=== PATIENT | female | born 1970 | race Caucasian/White ===

== ENCOUNTER → 2018-06-13 | Outpatient (CLI) | payer BC ==
[2018-06-14 15:07] LABS: HPV 16 Negative (Negative); HPV 18 Negative (Negative); HPV OTHER HR TYPES Positive (Negative)
== END | disposition home or self-care (01) ==
LOC: LAB SHORT 08:14 → LAB SRC 08:14
PROVIDERS: Nurse Practitioner Family
DX: Z01.419 Encounter for gynecological examination (general) (routine) without abnormal findings (principal)
CPT/HCPCS: 87624; 87625; G0123

== ENCOUNTER 2018-07-28 09:11 | Day surgery (SDC) | payer BC | END 2018-07-28 23:16 | disposition home or self-care (01) | LOC: CT 09:11 | DX: I88.9 Nonspecific lymphadenitis, unspecified (principal); R93.89 Abnormal findings on diagnostic imaging of other specified body structures; Z80.7 Family history of other malignant neoplasms of lymphoid, hematopoietic and related tissues | CPT/HCPCS: 38505; 76942; 88305; 88312 ==

== ENCOUNTER → 2018-08-23 | Outpatient (CLI) | payer BC ==
[~2018-08-23] MED LIST: ALBU90OI INH; Advil200 M1 PO; CLOTRIMAZOLE TOP; Flonase 0.05% N16 GM; IRON PO
== END ==
LOC: LAB SHORT 17:24 → LAB 17:24
DX: D48.5 Neoplasm of uncertain behavior of skin (principal); L53.8 Other specified erythematous conditions; L29.8 Other pruritus; R20.8 Other disturbances of skin sensation
CPT/HCPCS: 87015; 87071; 87075; 87102; 87116; 87205; 87206

== ENCOUNTER 2018-09-12 08:45 | Day surgery (SDC) | payer BC ==
[~2018-09-12] VITALS: Ht 170.2 cm; Wt 91.7 kg
--- NOTE | 2018-09-12 09:23 | NUR ---
Ambulatory in Day Surgery History, Chart, Medications and Allergies reviewed before start of procedure.Lungs clear T/O to Auscultation.DUO NEB GIVEN PER DR. JOHNSON ORDER. Patient confirms NPO status and agrees with scheduled surgery. Patient reports completing Chlorhexadine shower X2 prior to admission to hospital.Surgical site prepped with 2% Chlorhexidine cloth wipe.
--- NOTE | 2018-09-12 09:35 | NUR ---
AT BEDSIDE. AFTER REVIEW OF PT FILMS WITH RADIOLOGIST, PROCEDURE CANCELED.
--- NOTE | 2018-09-12 09:40 | NUR ---
PT DISCHARGED TO HOME PROCEDURE CANCELED. 'S OFFICE TO CALL PT TO SCHEDULE CONSULT WITH DR. BRIDGES.
== END 2018-09-12 10:00 | disposition home or self-care (01) ==
LOC: ORSCMMR 08:45 → ORD 10:00 → ORSCMMR 10:00
DX: R59.9 Enlarged lymph nodes, unspecified (principal); Z53.9 Procedure and treatment not carried out, unspecified reason
CPT/HCPCS: J2250; J2704; J3010; J7120

== ENCOUNTER 2021-06-25 11:43 | Emergency (ER) | payer BC ==
[~2021-06-25] VITALS: Ht 167.6 cm; Wt 102.5 kg
[2021-06-25 12:27] LABS: BASOPHILS ABSOLUTE AUTO 0.07 K/mm3 (0.00-0.23); BASOPHILS PERCENT AUTO 1 % (0-2); EOSINOPHILS ABSOLUTE AUTO 0.29 K/mm3 (0.00-0.68); EOSINOPHILS PERCENT AUTO 5 % (0-6); Hematocrit 43.6 % (33.0-51.0); Hemoglobin 13.7 g/dL (11.5-16.0); IMMATURE GRAN ABSOLUTE AUTO 0.04 K/mm3 (0.00-0.10); IMMATURE GRAN PERCENT AUTO 1 % (0-1); LYMPHOCYTES ABSOLUTE AUTO 1.21 K/mm3 (0.84-5.20); LYMPHOCYTES PERCENT AUTO 21 % (21-46); MONOCYTES ABSOLUTE AUTO 0.55 K/mm3 (0.16-1.47); MONOCYTES PERCENT AUTO 10 % (4-13); Mean Corpuscular HGB 25.2 pg (26.0-34.0); Mean Corpuscular HGB Conc 31.4 g/dL (31.5-36.5); Mean Corpuscular Volume 80 fL (80-100); Mean Platelet Volume 9.4 fL (9.1-12.4); NEUTROPHILS ABSOLUTE AUTO 3.61 K/mm3 (1.96-9.15); NEUTROPHILS PERCENT AUTO 63 % (41-73); Platelet Count 383 K/mm3 (150-400); RDW Coefficient Variation 13.9 % (11.7-14.2); RDW Standard Deviation 40.7 fL (35.1-46.3); Red Blood Cell Count 5.44 M/mm3 (3.80-5.20); White Blood Cell Count 5.77 K/mm3 (4.00-11.30)
[2021-06-25 12:40] LABS: Alanine Aminotransfer (ALT/SGP 32 U/L (12-78); Albumin, Blood 3.7 g/dL (3.4-5.0); Albumin/Globulin Ratio 0.9 (0.8-1.8); Alk Phos 99 U/L (50-136); Anion Gap 4 mmol/L (6-16); Aspartate Aminotrans (AST/SGOT 25 U/L (12-37); Bilirubin, Total 0.3 mg/dL (0.1-1.0); Blood Urea Nitrogen 16 mg/dL (8-24); CO2, Blood 27 mmol/L (21-32); Chloride, Blood 108 mmol/L (98-108); Creatinine, Blood 0.62 mg/dL (0.40-1.00); Globulin, Blood 4.1 g/dL (2.2-4.0); Glomerular Filtration Rate >60 (60-); Glucose, Blood 90 mg/dL (70-99); Potassium, Blood 4.1 mmol/L (3.5-5.5); Sodium, Blood 139 mmol/L (136-145); Total Protein, Blood 7.8 g/dL (6.4-8.2)
[2021-06-25] MEDS ORDERED: Voltaren100 GM TOP (15:48)
== END 2021-06-25 15:56 | disposition home or self-care (01) ==
LOC: ER 11:43
PROVIDERS: Physician Assistant
DX: R07.89 Other chest pain (principal); Z88.0 Allergy status to penicillin; Z79.899 Other long term (current) drug therapy; I10 Essential (primary) hypertension
CPT/HCPCS: 36415; 71045; 80053; 84484; 85025; 93005; 93010; 99285-25

== ENCOUNTER → 2021-08-04 | Outpatient (CLI) | payer BC ==
[~2021-08-04] MED LIST changes: +Voltaren100 GM TOP
[2021-08-04 18:00] LABS: Source, Urine Clean Catch
[2021-08-04 18:45] LABS: Appearance, Urine Hazy (Clear); Bilirubin, Urine Neg (Neg); Blood, Urine 1+ (Neg); Color, Urine Amber (P-Yellow); Glucose Qualitative, Urine Neg (Neg); Ketones, Urine Neg (Neg); Leukocyte Esterase, Urine 2+ (Neg); Nitrite, Urine Neg (Neg); Protein, Urine Neg (Neg); Urobilinogen, Urine NORM (Normal)
[2021-08-04 18:55] LABS: Bacteria Many /hpf; Squamous Epithelial Cells Many /hpf (Few)
== END | disposition home or self-care (01) ==
LOC: LAB SHORT 14:05
PROVIDERS: Physician Assistant
DX: N39.0 Urinary tract infection, site not specified (principal); R30.0 Dysuria
CPT/HCPCS: 81001; 87077; 87086; 87186

== ENCOUNTER → 2021-12-31 | Outpatient (CLI) | payer BC ==
[2022-01-05 09:09] LABS: HPV 16 Negative (Negative); HPV 18 Negative (Negative); HPV OTHER HR TYPES Positive (Negative)
== END ==
LOC: LAB SHORT 11:33
PROVIDERS: Nurse Practitioner Family
DX: Z11.51 Encounter for screening for human papillomavirus (HPV) (principal)
CPT/HCPCS: 87624; 87625; G0123

== ENCOUNTER → 2022-03-05 | Outpatient (CLI) | payer BC | LOC: LAB SHORT 13:10 → LAB 13:10 | DX: D26.0 Other benign neoplasm of cervix uteri (principal) | CPT/HCPCS: 88305 ==

== ENCOUNTER → 2022-04-02 | Outpatient (CLI) | payer BC ==
[2022-04-03 13:31] LABS: Candida species (DNA Probe) Negative (NEGATIVE); G. vaginalis (DNA Probe) Negative (NEGATIVE); T. vaginalis (DNA Probe) Negative (NEGATIVE)
== END | disposition home or self-care (01) ==
LOC: LAB SHORT 17:16
PROVIDERS: Obstetrics & Gynecology
DX: N76.0 Acute vaginitis (principal)
CPT/HCPCS: 87480; 87510; 87660

== ENCOUNTER 2022-07-10 01:51 | Inpatient (IN) | payer BC ==
[~2022-07-10] VITALS: Ht 167.6 cm; Wt 107.2 kg
[~2022-07-10 01:51] MED LIST changes: +FERROUS GLUCON324 M6 PO; -IRON PO
[2022-07-10 09:59] LABS: BASOPHILS ABSOLUTE AUTO 0.04 K/mm3 (0.00-0.23); BASOPHILS PERCENT AUTO 1 % (0-2); EOSINOPHILS ABSOLUTE AUTO 0.05 K/mm3 (0.00-0.68); EOSINOPHILS PERCENT AUTO 1 % (0-6); Hematocrit 40.8 % (33.0-51.0); Hemoglobin 12.9 g/dL (11.5-16.0); IMMATURE GRAN ABSOLUTE AUTO 0.04 K/mm3 (0.00-0.10); IMMATURE GRAN PERCENT AUTO 1 % (0-1); LYMPHOCYTES ABSOLUTE AUTO 1.88 K/mm3 (0.84-5.20); LYMPHOCYTES PERCENT AUTO 22 % (21-46); MONOCYTES ABSOLUTE AUTO 0.53 K/mm3 (0.16-1.47); MONOCYTES PERCENT AUTO 6 % (4-13); Mean Corpuscular HGB 25.1 pg (26.0-34.0); Mean Corpuscular HGB Conc 31.6 g/dL (31.5-36.5); Mean Corpuscular Volume 80 fL (80-100); Mean Platelet Volume 9.6 fL (9.1-12.4); NEUTROPHILS ABSOLUTE AUTO 5.85 K/mm3 (1.96-9.15); NEUTROPHILS PERCENT AUTO 70 % (41-73); Platelet Count 297 K/mm3 (150-400); RDW Coefficient Variation 14.1 % (11.7-14.2); RDW Standard Deviation 41.2 fL (35.1-46.3); Red Blood Cell Count 5.13 M/mm3 (3.80-5.20); White Blood Cell Count 8.39 K/mm3 (4.00-11.30)
[2022-07-10 10:19] LABS: Bun/Creatinine Ratio 29.2 (12.0-20.0); Calcium, Blood 8.6 mg/dL (8.5-10.1); Creatinine, Blood 0.65 mg/dL (0.40-1.00); Potassium, Blood 3.1 mmol/L (3.5-5.5)
[2022-07-10 10:43] LABS: Adenovirus Not Detected (NOT DETECT); Bordetella pertussis Not Detected (NOT DETECT); Chlamydophila pneumoniae Not Detected (NOT DETECT); Coronavirus 229E Not Detected (NOT DETECT); Coronavirus HKU1 Not Detected (NOT DETECT); Coronavirus NL63 Not Detected (NOT DETECT); Coronavirus OC43 Not Detected (NOT DETECT); Human Metapneumovirus Detected (NOT DETECT); Human Rhinovirus/Enterovirus Not Detected (NOT DETECT); Influenza A/2009-H1 Not Detected (NOT DETECT); Influenza A/H1 Not Detected (NOT DETECT); Influenza A/H3 Not Detected (NOT DETECT); Influenza B Not Detected (NOT DETECT); Mycoplasma pneumoniae Not Detected (NOT DETECT); Parainfluenza Virus 1 Not Detected (NOT DETECT); Parainfluenza Virus 2 Not Detected (NOT DETECT); Parainfluenza Virus 3 Not Detected (NOT DETECT); Parainfluenza Virus 4 Not Detected (NOT DETECT); Respiratory Syncytial Virus Not Detected (NOT DETECT); SARS-Cov-2 (COVID-19), BioFire Not Detected (NOT DETECT)
[2022-07-10 12:46] VITALS: BP 152/87
[2022-07-10 15:05] VITALS: BP 132/65
--- NOTE | 2022-07-10 15:59 | NUR ---
PATIENT ADMITED FROM ED TODAY FOR ASTHMA EXACERBATION. PATIENT CALM AND COOPERATIVE WITH STAFF AND ABLE TO MAKE NEEDS KNOWN. PATIENT IS INDEPENDANT OF ADLs. VSS, PATIENT ON RA WITH NO REPORTS OF DISTRESS. COURSE RESPIRATIONS NOTED WITH AUSCULTATION. SL IV LOCATED IN LEFT AC. NO REPORTS OF PAIN. STATED TOLERABLE PAIN GOAL OF <6/10 (10 MAX).
--- NOTE | 2022-07-10 16:25 | NUR ---
SHIFT SUMMARY THIS RN AGREES WITH STUDENT NURSE ASSESSMENT AND SHIFT SUMMARY
[2022-07-10 20:19] VITALS: BP 148/82
--- NOTE | 2022-07-11 05:05 | NUR ---
A&Ox4. PLEASANT AND COOPERATIVE WITH CARE. CALLS APPROPRIATELY AND IS ABLE TO COMMUNICATE NEEDS EFFECTIVELY. ORIENTED TO ABILITIES AND EXHIBITS GOOD JUDGMENT. RECEIVED ORDER FOR TEMAZEPAM AND FAMOTIDINE PER PATIENT REQUEST. CONTINUES WITH ATC NEBULIZER Tx. REPORTS FEELING LESS TIGHT. PRN GUAIFINESSIN x1 ADMINISTERED FOR COUGH. SHE DOES REQUEST A VEGAN DIET INCLUDING LACTOSE-FREE. REPORT TO ONCOMING RN.
[2022-07-11 05:47] VITALS: BP 148/83
[2022-07-11 07:12] VITALS: BP 156/88
--- NOTE | 2022-07-11 16:16 | NUR ---
SHIFT SUMMARY PATIENT IS ALERT AND ORIENTED. PATIENT HAS HAD NO ACUTE EVENTS THIS SHIFT. VITAL SIGNS REVIEWED. PATIENTS LUNGS STILL SOUND TIGHT AND COURSE. PATIENT STATES THAT SHE FEELS BETTER. PATIENT HAS NOT COMPLAINED OF PAIN, NAUSEA, SOB OR VOMITTING. BED IN LOCKED AND LOWEST POSITION. CALL LIGHT IN PLACE. WILL MONITOR UNTIL SHIFT CHANGE.
[2022-07-11 16:20] VITALS: BP 143/87
[2022-07-11 19:34] VITALS: BP 145/86
--- NOTE | 2022-07-12 04:14 | NUR ---
SHIFT SUMMARY; NO ACUTE CHANGES OVERNIGHT. THE PT IS AXO X4 AND INDEPENDENT IN THE ROOM. THE PT HAS BEEN RESTING IN BED FOR THE MAJORITY OF THE NIGHT. THE PT DENIES ANY SOB, CHEST PAIN/PRESSURE, PAIN OR N/V. CURRENTLY THE PT IS SLEEPING IN BED WITH THE BED IN THE LOWEST POSITION AND THE CALL LIGHT AT BEDSIDE.
[2022-07-12 04:35] VITALS: BP 146/78
[2022-07-12 07:30] VITALS: BP 147/92
[2022-07-12 15:41] VITALS: BP 156/82
--- NOTE | 2022-07-12 18:17 | NUR ---
SHIFT SUMMARY PATIENT IS ALERT AND ORIENTED. PATIENT HAS NOT HAD ANY ACUTE EVENTS THIS SHIFT. VITAL SIGNS REVIEWED. PATIENT IS HERE FOR GRUPO EXACERBATION. PATIENT HAS HAD REGULAR BREATHING TREATMENTS TODAY WITH LIMITED SUCCESS. POSSIBLE DISCHARGE TOMORROW. PATIENT HAS COMPLAINED OF PAIN- MEDICATED PER EMAR. PATIENT HAD NOT COMPLAINED OF NAUSEA OR VOMITTING THIS SHIFT. BED IN LOCKED AND LOWEST POSITION. CALL LIGHT IN PLACE. WILL MONITOR UNTIL SHIFT CHANGE.
[2022-07-12 19:44] VITALS: BP 136/72
[2022-07-13 03:27] VITALS: BP 152/77
--- NOTE | 2022-07-13 05:18 | NUR ---
Shift Summary Pt has new onset fever tonight ranging from 100-103. She has been on Tylenol for pain which is also controling her fever. She c/o painful ribs and chest d/t frequent coughing. She has been mildly dyspnic stating her chest feels tight. RT gave her breathing treatments but she states they didn't help much. Pt does not want to take cough syrup b/c she states it worsened her cough the other night. Made hot peppermint tea which helped relieve some discomfort, pt was able to get some sleep. AOx4, pleasant and cooperative with care.
[2022-07-13 08:01] VITALS: BP 115/78
--- NOTE | 2022-07-13 10:33 | NUR ---
PT REPORTS FEELING LIKE HER COUGHING PATTERN HAS CHANGED TO MORE BARKING AND IS UNABLE TO "BREAK UP SPUTUM". PT PROVIDED W/ HOT TEA, BREATHING TX REQUESTED.
[2022-07-13 12:10] LABS: Hematocrit 39.9 % (33.0-51.0); Hemoglobin 12.5 g/dL (11.5-16.0); Mean Corpuscular HGB 25.3 pg (26.0-34.0); Mean Corpuscular HGB Conc 31.3 g/dL (31.5-36.5); Mean Corpuscular Volume 81 fL (80-100); Mean Platelet Volume 9.7 fL (9.1-12.4); Platelet Count 323 K/mm3 (150-400); RDW Coefficient Variation 14.4 % (11.7-14.2); RDW Standard Deviation 41.7 fL (35.1-46.3); Red Blood Cell Count 4.95 M/mm3 (3.80-5.20); White Blood Cell Count 16.06 K/mm3 (4.00-11.30)
[2022-07-13 12:18] LABS: Albumin, Blood 2.6 g/dL (3.4-5.0); Anion Gap 8 mmol/L (6-16); Blood Urea Nitrogen 21 mg/dL (8-24); CO2, Blood 24 mmol/L (21-32); Calcium, Blood 8.8 mg/dL (8.5-10.1); Chloride, Blood 106 mmol/L (98-108); Creatinine, Blood 0.58 mg/dL (0.40-1.00); Glomerular Filtration Rate 110 (60-); Glucose, Blood 309 mg/dL (70-99); Phosphorus, Blood 2.2 mg/dL (2.5-4.9); Potassium, Blood 4.1 mmol/L (3.5-5.5); Sodium, Blood 138 mmol/L (136-145)
--- NOTE | 2022-07-13 12:40 | NUR ---
DR. FELIX NOTIFIED OF CRIT HIGH LACTIC ACID
[2022-07-13 12:56] VITALS: BP 138/83
[2022-07-13 13:32] LABS: BAND PERCENT MAN 16 % (0-8); BASOPHILS PERCENT MAN 0 % (0-2); EOSINOPHILS PERCENT MAN 0 % (0-6); LYMPHOCYTES ABSOLUTE MAN 1.12 K/mm3 (0.84-5.20); LYMPHOCYTES PERCENT MAN 7 % (21-46); MONOCYTES ABSOLUTE MAN 0.48 K/mm3 (0.16-1.47); MONOCYTES PERCENT MAN 3 % (4-13); MYELOCYTE ABSOLUTE MAN 0.16 K/mm3 (0.00-0.00); MYELOCYTE PERCENT MAN 1 % (0-0); NEUTROPHILS ABSOLUTE MAN 14.29 K/mm3 (1.96-9.15); SEG NEUTROPHILS PERCENT MAN 73 % (41-73); TOTAL CELLS COUNTED 100
[2022-07-13 15:30] VITALS: BP 131/76
--- NOTE | 2022-07-13 17:46 | NUR ---
SHIFT SUMMARY PT A&OX4 AND IN PLEASENT MOOD T/O SHIFT. CH LACTIC ACID REPORTED TO DR. DONALD BOLUS PROVIDED, REPEAT SHOWED TRENDING DOWN. CONT. ODILON @ 125 RUNNING NOW TO POWERGLIDE. ABX STARTED THIS SHIFT DUE TO CXR BILAT PNUMONIA. PT REPORTS HX OF SARCOIDOSIS. TACHYCARDIA REPORTED TO DR. TAYLOR STOVALL W/IN REACH.
[2022-07-13 19:37] VITALS: BP 147/89
[2022-07-14 03:29] VITALS: BP 118/63
[2022-07-14 04:50] LABS: Hematocrit 35.1 % (33.0-51.0); Hemoglobin 11.1 g/dL (11.5-16.0); Mean Corpuscular HGB 25.3 pg (26.0-34.0); Mean Corpuscular HGB Conc 31.6 g/dL (31.5-36.5); Mean Corpuscular Volume 80 fL (80-100); Mean Platelet Volume 9.6 fL (9.1-12.4); Platelet Count 289 K/mm3 (150-400); RDW Coefficient Variation 14.5 % (11.7-14.2); RDW Standard Deviation 42.4 fL (35.1-46.3); Red Blood Cell Count 4.39 M/mm3 (3.80-5.20); White Blood Cell Count 12.91 K/mm3 (4.00-11.30)
[2022-07-14 05:07] LABS: Anion Gap 3 mmol/L (6-16); Blood Urea Nitrogen 19 mg/dL (8-24); Bun/Creatinine Ratio 38.5 (12.0-20.0); CO2, Blood 27 mmol/L (21-32); Calcium, Blood 8.4 mg/dL (8.5-10.1); Chloride, Blood 108 mmol/L (98-108); Creatinine, Blood 0.49 mg/dL (0.40-1.00); Glomerular Filtration Rate 115 (60-); Glucose, Blood 243 mg/dL (70-99); Phosphorus, Blood 2.5 mg/dL (2.5-4.9); Potassium, Blood 4.2 mmol/L (3.5-5.5); Sodium, Blood 138 mmol/L (136-145)
[2022-07-14 05:17] LABS: BAND PERCENT MAN 8 % (0-8); BASOPHILS PERCENT MAN 0 % (0-2); EOSINOPHILS PERCENT MAN 0 % (0-6); LYMPHOCYTES ABSOLUTE MAN 0.25 K/mm3 (0.84-5.20); LYMPHOCYTES PERCENT MAN 2 % (21-46); METAMYELOCYTE ABSOLUTE MAN 0.12 K/mm3 (0.00-0.00); METAMYELOCYTE PERCENT MAN 1 % (0-0); MONOCYTES ABSOLUTE MAN 0.12 K/mm3 (0.16-1.47); MONOCYTES PERCENT MAN 1 % (4-13); NEUTROPHILS ABSOLUTE MAN 12.39 K/mm3 (1.96-9.15); SEG NEUTROPHILS PERCENT MAN 88 % (41-73); TOTAL CELLS COUNTED 100
--- NOTE | 2022-07-14 05:53 | NUR ---
Shift Summary No c/o pain or nausea this shift. Pt still coughing and having difficulty coughing up a sputum sample. Gave pt flutter valve and educated on how to use. Pt states she is able to cough up secretions better with flutter valve but still no sputum sample. Rcving LR @ 125 and SoluMedrol at midnight. Powerglide draws well for labs. No fever noted this shift, no Tylenol given. Slept well t/o the night. VSS, independent in room, pleasant and cooperative.
[2022-07-14 07:31] VITALS: BP 151/97
[2022-07-14 15:05] VITALS: BP 140/80
--- NOTE | 2022-07-14 17:53 | NUR ---
SHIFT SUMMARY: Pt remains A&O x 3. Denies pain. Exp wheeze auscultated without acute distress. On RA, nonproductive cough. VSS, afebrile. Tolerating diet. Power glide to left arm WNL. No c/o verbalized. Will continue to follow.
[2022-07-14 20:26] VITALS: BP 140/85
--- NOTE | 2022-07-15 04:15 | NUR ---
LUNG SOUNDS STILL COARSE WITH EXPIRATORY WHEEZES (MORE ON RIGHT THAN LEFT). PATIENT STATES SHE IS FEELING A LOT BETTER, AND WAS THINKING MAYBE SHE MAY BE DISCHARGED TODAY. SPEAKING IN FULL SENTENCES AND OOB INDEPENDENTLY TO BATHROOM AND CHAIR. CURRENTLY SHE IS STILL IN IV SOLU MEDROL
[2022-07-15 04:44] VITALS: BP 149/78
[2022-07-15 05:17] LABS: Hematocrit 36.7 % (33.0-51.0); Hemoglobin 11.8 g/dL (11.5-16.0); Mean Corpuscular HGB 25.5 pg (26.0-34.0); Mean Corpuscular HGB Conc 32.2 g/dL (31.5-36.5); Mean Corpuscular Volume 79 fL (80-100); Mean Platelet Volume 9.6 fL (9.1-12.4); Platelet Count 340 K/mm3 (150-400); RDW Coefficient Variation 14.6 % (11.7-14.2); RDW Standard Deviation 41.7 fL (35.1-46.3); Red Blood Cell Count 4.62 M/mm3 (3.80-5.20); White Blood Cell Count 16.16 K/mm3 (4.00-11.30)
[2022-07-15 06:03] LABS: Albumin, Blood 2.3 g/dL (3.4-5.0); Anion Gap 2 mmol/L (6-16); Blood Urea Nitrogen 23 mg/dL (8-24); Bun/Creatinine Ratio 39.5 (12.0-20.0); CO2, Blood 27 mmol/L (21-32); Calcium, Blood 8.9 mg/dL (8.5-10.1); Chloride, Blood 108 mmol/L (98-108); Creatinine, Blood 0.58 mg/dL (0.40-1.00); Glomerular Filtration Rate 110 (60-); Glucose, Blood 195 mg/dL (70-99); Potassium, Blood 4.2 mmol/L (3.5-5.5); Sodium, Blood 137 mmol/L (136-145)
[2022-07-15 06:38] LABS: BAND PERCENT MAN 3 % (0-8); BASOPHILS PERCENT MAN 0 % (0-2); EOSINOPHILS PERCENT MAN 0 % (0-6); LYMPHOCYTES ABSOLUTE MAN 1.29 K/mm3 (0.84-5.20); LYMPHOCYTES PERCENT MAN 8 % (21-46); METAMYELOCYTE ABSOLUTE MAN 0.16 K/mm3 (0.00-0.00); METAMYELOCYTE PERCENT MAN 1 % (0-0); MONOCYTES ABSOLUTE MAN 0.48 K/mm3 (0.16-1.47); MONOCYTES PERCENT MAN 3 % (4-13); MYELOCYTE ABSOLUTE MAN 0.16 K/mm3 (0.00-0.00); MYELOCYTE PERCENT MAN 1 % (0-0); NEUTROPHILS ABSOLUTE MAN 14.05 K/mm3 (1.96-9.15); SEG NEUTROPHILS PERCENT MAN 84 % (41-73); TOTAL CELLS COUNTED 100
[2022-07-15 07:48] VITALS: BP 161/85
[2022-07-15 15:41] VITALS: BP 148/87
--- NOTE | 2022-07-15 18:19 | NUR ---
SHIFT SUMMARY: Pt remains A&O x3 this shift. VSS, afebrile. Independent with repositioning. Denies pain. Respirations even nonlabored on room air. Exp wheeze auscultated. On PO steroid and antibiotics. No further c/o verbalized. Will continue to monitor this shift.
[2022-07-15 19:33] VITALS: BP 137/76
--- NOTE | 2022-07-15 19:52 | NUR ---
Patient states it was difficult for her to sleep last night and today due to dry hacking cough. call placed to hospitalist to discuss changing cough syrup
--- NOTE | 2022-07-16 03:01 | NUR ---
LUNG SOUNDS IMPROVING FROM PREVIOUS NIGHT. PATIENT HAPPY ABOUT STARTING PO STEROIDS IN THE MORNING. ANXIOUS LAST EVENING AND COMPLAINING OF REFLUX AND INABILITY TO LOWER HEAD OF BED. ENSURED PATIENT SHE DID RECEIVE HER PEPCID AND SPOKE WITH HOSPITALIST AND OBTAINED ORDER FOR TUMS WHICH GAVE PATIENT RELIEF. PART OF REASON SHE WAS FEELING ANXIOUS WAS THAT HER DOG RAN AWAY AND SHE WAS QUITE UPSET. HOPING FOR DISCHARGE TODAY
[2022-07-16 04:49] VITALS: BP 135/67
[2022-07-16 06:34] LABS: Hematocrit 35.5 % (33.0-51.0); Hemoglobin 11.5 g/dL (11.5-16.0); Mean Corpuscular HGB 25.6 pg (26.0-34.0); Mean Corpuscular HGB Conc 32.4 g/dL (31.5-36.5); Mean Corpuscular Volume 79 fL (80-100); Mean Platelet Volume 9.3 fL (9.1-12.4); Platelet Count 336 K/mm3 (150-400); RDW Coefficient Variation 14.5 % (11.7-14.2); RDW Standard Deviation 41.5 fL (35.1-46.3); Red Blood Cell Count 4.49 M/mm3 (3.80-5.20); White Blood Cell Count 12.81 K/mm3 (4.00-11.30)
[2022-07-16 07:08] LABS: BAND PERCENT MAN 2 % (0-8); BASOPHILS PERCENT MAN 0 % (0-2); EOSINOPHILS PERCENT MAN 0 % (0-6); LYMPHOCYTES ABSOLUTE MAN 1.53 K/mm3 (0.84-5.20); LYMPHOCYTES PERCENT MAN 12 % (21-46); METAMYELOCYTE ABSOLUTE MAN 0.12 K/mm3 (0.00-0.00); METAMYELOCYTE PERCENT MAN 1 % (0-0); MONOCYTES ABSOLUTE MAN 0.38 K/mm3 (0.16-1.47); MONOCYTES PERCENT MAN 3 % (4-13); MYELOCYTE ABSOLUTE MAN 0.38 K/mm3 (0.00-0.00); MYELOCYTE PERCENT MAN 3 % (0-0); NEUTROPHILS ABSOLUTE MAN 10.37 K/mm3 (1.96-9.15); SEG NEUTROPHILS PERCENT MAN 79 % (41-73); TOTAL CELLS COUNTED 100
[2022-07-16 07:55] VITALS: BP 141/84
[2022-07-16] MEDS ORDERED: ACET325 PO (10:13)
[2022-07-16] MEDS ORDERED: Calcium Carbon500 MG PO (10:15)
[2022-07-16] MEDS ORDERED: GUAI600T33 PO (10:28)
[2022-07-16] MEDS ORDERED: FAMO20 PO (10:28)
[2022-07-16] MEDS ORDERED: IPRAT-ALBUT 0.5-3 ML INH (10:29)
[2022-07-16] MEDS ORDERED: LEVO750 PO (10:29)
[2022-07-16] MEDS ORDERED: NYSTATIN100000 U13 MT (10:36)
[2022-07-16] MEDS ORDERED: Prednisone10 MG PO (10:39)
[2022-07-16] MEDS ORDERED: ALBU3IS INH (10:40)
[2022-07-16] MEDS ORDERED: FLUT1DIS5 INH (10:41)
--- NOTE | 2022-07-16 13:30 | NUR ---
DISCHARGE SUMMARY: PT EDUCATED ON DISCHARGE MEDICATIONS AND PLAN. PT VU. PT ESCORTED TO POV VIA WC WITH HER MOM BY VEE. PT ASSISTED WITH PACKING UP BELONGINGS AND SENDING WITH PT.
== END 2022-07-16 12:45 | disposition home or self-care (01) | DRG 189 ==
LOC: ER 01:51 → MEDS 01:52 → ENPENDDIS 07-16 09:21 → MEDS 07-16 12:45
PROVIDERS: Student in an Organized Health Care Education/Training Program; ADMIT Family Medicine
DX: J96.01 Acute respiratory failure with hypoxia (principal); A41.9 Sepsis, unspecified organism; J18.9 Pneumonia, unspecified organism; R65.20 Severe sepsis without septic shock; J45.901 Unspecified asthma with (acute) exacerbation; E87.20 Acidosis, unspecified; Z20.822 Contact with and (suspected) exposure to COVID-19; E87.6 Hypokalemia; D72.828 Other elevated white blood cell count; T38.0X5A Adverse effect of glucocorticoids and synthetic analogues, initial encounter; I10 Essential (primary) hypertension; J06.9 Acute upper respiratory infection, unspecified; B97.81 Human metapneumovirus as the cause of diseases classified elsewhere; K21.9 Gastro-esophageal reflux disease without esophagitis; D64.9 Anemia, unspecified; E88.09 Other disorders of plasma-protein metabolism, not elsewhere classified; Z88.0 Allergy status to penicillin; Z98.890 Other specified postprocedural states; Z79.899 Other long term (current) drug therapy
CPT/HCPCS: 0202U; 36415; 71046; 80048; 80069; 82947; 83036; 83605; 84132; 84145; 85025; 87040; 93005; 93010; 94640; 94644; 94645; 94664; 94760; 96365; 96366; 96372; 96375; 96376; 99285-25; A9270; C1751; G0378; J1650; J1815; J1956; J2930; J3475; J7030; J7120; J7512

== ENCOUNTER → 2022-08-04 | Outpatient (CLI) | payer BC ==
[~2022-08-04] MED LIST changes: +ACET325 PO; +ALBU3IS INH; +Calcium Carbon500 MG PO; +FAMO20 PO; +FLUT1DIS5 INH; +GUAI600T33 PO; +IPRAT-ALBUT 0.5-3 ML INH; +LEVO750 PO; +NYSTATIN100000 U13 MT; +Prednisone10 MG PO
[2022-08-04 18:36] LABS: Calcium, Blood 8.7 mg/dL (8.5-10.1); Creatinine, Blood 0.62 mg/dL (0.40-1.00); Magnesium, Blood 2.2 mg/dL (1.6-2.4)
== END | disposition home or self-care (01) ==
LOC: LAB SHORT 17:45 → LAB 17:45
PROVIDERS: Nurse Practitioner
DX: R53.83 Other fatigue (principal)
CPT/HCPCS: 80048; 83735

== ENCOUNTER → 2022-08-05 | Outpatient (CLI) | payer BC ==
[2022-08-05 13:55] LABS: BASOPHILS ABSOLUTE AUTO 0.06 K/mm3 (0.00-0.23); BASOPHILS PERCENT AUTO 1 % (0-2); EOSINOPHILS ABSOLUTE AUTO 0.62 K/mm3 (0.00-0.68); EOSINOPHILS PERCENT AUTO 10 % (0-6); Hematocrit 36.5 % (33.0-51.0); Hemoglobin 11.7 g/dL (11.5-16.0); IMMATURE GRAN ABSOLUTE AUTO 0.06 K/mm3 (0.00-0.10); IMMATURE GRAN PERCENT AUTO 1 % (0-1); LYMPHOCYTES ABSOLUTE AUTO 1.05 K/mm3 (0.84-5.20); LYMPHOCYTES PERCENT AUTO 17 % (21-46); MONOCYTES ABSOLUTE AUTO 0.41 K/mm3 (0.16-1.47); MONOCYTES PERCENT AUTO 7 % (4-13); Mean Corpuscular HGB 26.1 pg (26.0-34.0); Mean Corpuscular HGB Conc 32.1 g/dL (31.5-36.5); Mean Corpuscular Volume 81 fL (80-100); Mean Platelet Volume 9.7 fL (9.1-12.4); NEUTROPHILS ABSOLUTE AUTO 4.01 K/mm3 (1.96-9.15); NEUTROPHILS PERCENT AUTO 65 % (41-73); Platelet Count 280 K/mm3 (150-400); RDW Coefficient Variation 15.4 % (11.7-14.2); RDW Standard Deviation 45.3 fL (35.1-46.3); Red Blood Cell Count 4.49 M/mm3 (3.80-5.20); White Blood Cell Count 6.21 K/mm3 (4.00-11.30)
== END | disposition home or self-care (01) ==
LOC: LAB SHORT 13:16 → LAB 13:16
PROVIDERS: Nurse Practitioner
DX: J18.8 Other pneumonia, unspecified organism (principal)
CPT/HCPCS: 85025

== ENCOUNTER 2022-12-08 06:50 | Day surgery (SDC) | payer BC ==
[~2022-12-08] VITALS: Ht 169 cm; Wt 106.4 kg
[2022-12-08 07:28] VITALS: BP 150/98
--- NOTE | 2022-12-08 07:48 | NUR ---
Ambulatory in Day Surgery. History, Chart, Medications and Allergies reviewed before start of procedure. Patient confirms NPO status and agrees with scheduled surgery. Pre-Op teaching done. Pt verbalizes understanding. Patient States Post-Procedure ride home has been arranged.
--- NOTE | 2022-12-08 09:22 | NUR ---
12/08/22 0922 Tiffani Garrett History, Chart, Medications and Allergies reviewed before start of procedure.
[2022-12-08 09:37] VITALS: BP 129/104
--- NOTE | 2022-12-08 09:44 | NUR ---
REPORT RECEIVED FROM JUANCHO AGUILAR RN. PT ABLE TO REPOSITION SELF IN BED. PT REQUESTING PO FOOD AND FLUIDS AND TOLERATING THEM WELL. PT DENIES PAIN, NAUSEA, OR OTHER DISCOMFORTS AT THIS TIME. AT BEDSIDE.
[2022-12-08 09:45] VITALS: BP 135/103
[2022-12-08 09:50] VITALS: BP 162/95
[2022-12-08 09:59] VITALS: BP 150/97
--- NOTE | 2022-12-08 10:10 | NUR ---
Patient up to Ambulate independently. Gait steady. VSS AND CONSISTENT WITH PT BASELINE. Discharge instructions reviewed with patient. Patient verbalizes understanding. Copy given to patient to take home. Patient States Post-Procedure ride home has been arranged. Discharged via wheelchair to private car for ride home. PT BELONGINGS RETURNED TO PT.
== END 2022-12-08 10:10 | disposition home or self-care (01) ==
LOC: ORSCMMR 06:50 → ORD 06:50 → ORSCMMR 06:51 → ORD 06:53 → ORSCMMR 10:12 → ORD 10:12 → ORSCMMR 12-13 23:00 → ORD 12-13 23:00
PROVIDERS: Internal Medicine Gastroenterology
PROC: 0DB48ZX Excision of Esophagogastric Junction, Via Natural or Artificial Opening Endoscopic, Diagnostic (ICD-10-PCS; principal; 2022-12-08 11:45)
PROC: 0DB98ZX Excision of Duodenum, Via Natural or Artificial Opening Endoscopic, Diagnostic (ICD-10-PCS; principal; 2022-12-08 11:45)
PROC: 0DB78ZX Excision of Stomach, Pylorus, Via Natural or Artificial Opening Endoscopic, Diagnostic (ICD-10-PCS; principal; 2022-12-08 11:45)
DX: K21.00 Gastro-esophageal reflux disease with esophagitis, without bleeding (principal); K92.0 Hematemesis; K29.70 Gastritis, unspecified, without bleeding; D86.9 Sarcoidosis, unspecified; I10 Essential (primary) hypertension; G47.33 Obstructive sleep apnea (adult) (pediatric); J45.909 Unspecified asthma, uncomplicated; E66.9 Obesity, unspecified; Z68.37 Body mass index [BMI] 37.0-37.9, adult
CPT/HCPCS: 84703; 88305; 88312; 88341; 88342; A9270; J2001; J2704; J7120

== ENCOUNTER → 2023-03-01 | Outpatient (CLI) | payer BC ==
[2023-03-01 18:03] LABS: BASOPHILS ABSOLUTE AUTO 0.07 K/mm3 (0.00-0.23); BASOPHILS PERCENT AUTO 1 % (0-2); EOSINOPHILS ABSOLUTE AUTO 0.39 K/mm3 (0.00-0.68); EOSINOPHILS PERCENT AUTO 6 % (0-6); Hematocrit 39.4 % (33.0-51.0); Hemoglobin 12.6 g/dL (11.5-16.0); Mean Corpuscular HGB 24.4 pg (26.0-34.0); Mean Corpuscular Volume 76 fL (80-100); Mean Platelet Volume 9.3 fL (9.1-12.4); Platelet Count 321 K/mm3 (150-400); RDW Coefficient Variation 15.7 % (11.7-14.2); RDW Standard Deviation 42.6 fL (35.1-46.3); Red Blood Cell Count 5.16 M/mm3 (3.80-5.20); White Blood Cell Count 6.94 K/mm3 (4.00-11.30)
[2023-03-01 18:11] LABS: Albumin, Blood 3.2 g/dL (3.4-5.0); Albumin/Globulin Ratio 0.7 (0.8-1.8); Bilirubin, Total 0.2 mg/dL (0.1-1.0); Bun/Creatinine Ratio 13.2 (12.0-20.0); Calcium, Blood 8.9 mg/dL (8.5-10.1); Creatinine, Blood 0.76 mg/dL (0.40-1.00); Globulin, Blood 4.6 g/dL (2.2-4.0); Potassium, Blood 3.9 mmol/L (3.5-5.5); Total Protein, Blood 7.8 g/dL (6.4-8.2)
[2023-03-01 18:35] LABS: IMMATURE GRAN ABSOLUTE AUTO 0.02 K/mm3 (0.00-0.10); IMMATURE GRAN PERCENT AUTO 0 % (0-1); LYMPHOCYTES ABSOLUTE AUTO 1.62 K/mm3 (0.84-5.20); LYMPHOCYTES PERCENT AUTO 23 % (21-46); MONOCYTES ABSOLUTE AUTO 0.68 K/mm3 (0.16-1.47); MONOCYTES PERCENT AUTO 10 % (4-13); NEUTROPHILS ABSOLUTE AUTO 4.16 K/mm3 (1.96-9.15); NEUTROPHILS PERCENT AUTO 60 % (41-73)
== END | disposition home or self-care (01) ==
LOC: LAB SHORT 17:54 → LAB 17:54
PROVIDERS: Physician Assistant
DX: R07.9 Chest pain, unspecified (principal)
CPT/HCPCS: 80053; 84484; 85025